=== PATIENT | female | born 1995 | race Two or more races ===

== ENCOUNTER 2024-03-16 17:58 | Emergency (ER) | payer OTHER ==
[~2024-03-16] VITALS: Ht 144.8 cm; Wt 44.9 kg
[2024-03-16] MEDS ORDERED: ACETAMINOPHEN 500 MG GEL..CAP PO ONE (18:46)
[2024-03-16] MEDS ORDERED: ONDANSETRON HCL 2 MG/ML VIAL IV ONE (20:45)
[2024-03-16] MEDS ORDERED: 0.9 % SODIUM CHLORIDE 1,000 ML IV SCH (20:45)
[2024-03-16] MEDS ORDERED: FAMOTIDINE/PF 20 MG/2 ML VIAL IV PUSH ONE (20:45)
[2024-03-16] MEDS ORDERED: ONDANSETRON HCL 2 MG/ML VIAL ONE (20:54)
[2024-03-16] MEDS ORDERED: FAMOTIDINE/PF 20 MG/2 ML VIAL ONE (20:55)
[2024-03-16 21:06] LABS: HEMATOCRIT 35.6 % (36.0-45.00); MEAN CELL VOLUME 94.1 fL (80.00-100.00); MEAN CORPUSCULAR HEMOGLOBIN 31.7 pg (27.00-32.0); MEAN CORPUSCULAR HGB CONC 33.7 g/dl (32.0-36.0); PLATELET COUNT 299 K/uL (150-450); RED BLOOD COUNT 3.78 M/uL (4.00-6.00); RED CELL DISTRIBUTION WIDTH 13.4 % (11.5-14.5)
[2024-03-16 21:07] LABS: PH,URINE 5.5 (5.0-8.0); URINE APPEARANCE Cloudy; URINE BILIRRUBIN Negative (NEGATIVE); URINE BLOOD Negative; URINE COLOR Yellow; URINE GLUCOSE Negative (NEGATIVE); URINE LEUKOCYTE Negative; URINE NITRATE Negative; URINE PROTEIN 30 (NEGATIVE); URINE UROBILINOGEN 0.2 E.U./dl
[2024-03-16 21:51] LABS: URINE BACTERIA 9089.4 uL (0.0-1933); URINE CAST 2.79 uL (0.0-1.40); URINE EPITHELIAL CELLS 111.6 uL (0.0-38.8); URINE RBC 10.4 uL (0.0-20.8); URINE WBC 48.6 uL (0.0-23.2)
[2024-03-16 22:01] LABS: URINE KETONE 80 (NEGATIVE)
[2024-03-16 22:02] LABS: URINE MUCUS HEAVY
[2024-03-16 22:03] LABS: CALCIUM 10.1 mg/dL (8.5-10.1); CREATININE SERUM 0.94 mg/dL (0.55-1.02); GFR 69.92; POTASSIUM 3.1 mEq/L (3.5-5.1)
== END 2024-03-17 02:34 | disposition home or self-care (01) ==
LOC: ER 18:01
PROVIDERS: Emergency Medicine
DX: O98.511 Other viral diseases complicating pregnancy, first trimester (principal); B34.9 Viral infection, unspecified; O99.611 Diseases of the digestive system complicating pregnancy, first trimester; K29.70 Gastritis, unspecified, without bleeding; Z3A.08 8 weeks gestation of pregnancy; Z88.2 Allergy status to sulfonamides; Z20.822 Contact with and (suspected) exposure to COVID-19